=== PATIENT | male | born 1995 | race Two or more races ===

== ENCOUNTER 2019-05-14 01:33 | Emergency (ER) | payer OTHER ==
[~2019-05-14] VITALS: Ht 182.9 cm; Wt 86.2 kg
--- NOTE | 2019-05-14 01:54 | NUR ---
Dr. Sotomayor at bedside for MSE.
[2019-05-14] MEDS: IV NORMAL SALINE 1000 ML BAG IV ONE ×2 (02:01→03:04)
[2019-05-14] MEDS ORDERED: KETOROLAC TROMETHAMINE 15 MG INJ ONE (02:02)
[2019-05-14] MEDS ORDERED: METOCLOPRAMIDE HCL 10 MG/2 ML VIAL ONE (02:03)
[2019-05-14] MEDS: METOCLOPRAMIDE HCL 10 MG/2 ML VIAL IV ONE (02:05)
[2019-05-14] MEDS: KETOROLAC TROMETHAMINE 15 MG INJ IVP ONE (02:06)
[2019-05-14 02:19] LABS: BASOPHILS % (AUTO) 0.2 % (0.0-2.0); EOSINOPHILS % (AUTO) 0.1 % (0.0-7.0); HEMATOCRIT 48.1 % (36.7-47.1); LYMPHOCYTES # (AUTO) 0.2 K/uL (20.0-40.0); LYMPHOCYTES % (AUTO) 1.3 % (20.5-51.5); MEAN CORPUSCULAR HGB CONC 33 g/dL (32.5-36.3); MEAN CORPUSCULAR VOLUME 87.1 fL (73.0-96.2); MONOCYTES # (AUTO) 0.9 K/uL (2.0-10.0); MONOCYTES % (AUTO) 6.1 % (0.0-11.0); NEUTROPHILS # (AUTO) 14.3 K/uL (1.8-8.9); NEUTROPHILS % (AUTO) 92.3 % (38.5-71.5); PLATELET COUNT (AUTO) 214 K/uL (152-348); RED BLOOD CELL COUNT(AUTO) 5.52 MIL/uL (4.06-5.63); WHITE BLOOD COUNT (AUTO) 15.5 K/uL (3.6-10.2)
[2019-05-14 02:23] LABS: CREATININE 1.4 mg/dL (0.6-1.3); POTASSIUM 3.6 mmol/L (3.5-5.1)
[2019-05-14 02:29] LABS: BILIRUBIN,DIRECT 0.2 mg/dL (0.0-0.2); TOTAL PROTEIN, SERUM 8.4 g/dL (6.4-8.2)
--- NOTE | 2019-05-14 02:55 | NUR ---
Pt states nausea is gone.
--- NOTE | 2019-05-14 03:45 | NUR ---
Patient discharged to home in stable conditon. Written and verbal after care instructions given. Patient verbalizes understanding of instructions. Pt ambulated out of ER with steady gait, no acute signs of distress, VSS, all belongings taken.
[2019-05-14 03:51] VITALS: BP 115/75
== END 2019-05-14 03:52 | disposition home or self-care (01) ==
LOC: ER 01:37
DX: B34.9 Viral infection, unspecified (principal); E86.0 Dehydration
CPT/HCPCS: 36415; 80048; 80076; 83690; 84484; 85025; 87400; 96361; 96374; 96375; 99283; J1885; J2765; 70030-TC; A4663; J7030